=== PATIENT | female | born 1980 | race African-American/Black ===

== ENCOUNTER 2017-02-17 04:36 | Emergency (ER) | payer OTHER ==
[~2017-02-17] VITALS: Ht 162.6 cm; Wt 60.0 kg
[2017-02-17 05:27] VITALS: BP 122/75
[2017-02-17 05:39] LABS: CLARITY URINE CLEAR (CLEAR); COLOR URINE YELLOW (YELLOW); GLUCOSE URINE NEGATIVE (NEGATIVE); KETONES URINE NEGATIVE (NEGATIVE); LEUKOCYTE ESTERASE URINE 3+ (NEGATIVE); NITRITE URINE NEGATIVE (NEGATIVE); OCCULT BLOOD URINE 2+ (NEGATIVE); PH URINE 5.5 (4.5-8.0); PROTEIN URINE NEGATIVE (NEGATIVE); UROBILINOGEN URINE 0.2 E.U./dL (0.2-1.0)
== END 2017-02-17 07:14 | disposition home or self-care (01) ==
LOC: ER 04:36
DX: N39.0 Urinary tract infection, site not specified (principal)
CPT/HCPCS: 81001; 81025; 99283

== ENCOUNTER 2017-07-15 18:03 | Emergency (ER) | payer MEDICAID, OTHER ==
[~2017-07-15] VITALS: Ht 160 cm; Wt 62.0 kg
[2017-07-15] MEDS ORDERED: IBUPROFEN 600MG TABLET PO STA (21:53)
[2017-07-15 22:09] LABS: CLARITY URINE CLOUDY (CLEAR); COLOR URINE YELLOW (YELLOW); GLUCOSE URINE NEGATIVE (NEGATIVE); KETONES URINE TRACE (NEGATIVE); LEUKOCYTE ESTERASE URINE 2+ (NEGATIVE); NITRITE URINE NEGATIVE (NEGATIVE); OCCULT BLOOD URINE NEGATIVE (NEGATIVE); PROTEIN URINE NEGATIVE (NEGATIVE); SPECIFIC GRAVITY URINE 1.025 (1.005-1.030)
[2017-07-15] MEDS ORDERED: CEPHALEXIN 500MG CAPSULE PO ONE (22:45)
[2017-07-15 23:00] VITALS: BP 119/62
== END 2017-07-15 23:01 | disposition home or self-care (01) ==
LOC: ER 18:26
DX: N30.00 Acute cystitis without hematuria (principal)
CPT/HCPCS: 81001; 81025; 99283

== ENCOUNTER 2018-09-19 22:59 | Emergency (ER) | payer MEDICAID, OTHER ==
[~2018-09-19] VITALS: Ht 162.6 cm; Wt 59.3 kg
[2018-09-20 01:25] LABS: CLARITY URINE CLOUDY (CLEAR); COLOR URINE YELLOW (YELLOW); KETONES URINE TRACE (NEGATIVE); LEUKOCYTE ESTERASE URINE TRACE (NEGATIVE); NITRITE URINE NEGATIVE (NEGATIVE); OCCULT BLOOD URINE 2+ (NEGATIVE); PH URINE 5.5 (4.5-8.0); PROTEIN URINE NEGATIVE (NEGATIVE); SPECIFIC GRAVITY URINE 1.033 (1.005-1.030)
[2018-09-20 03:25] VITALS: BP 108/64
== END 2018-09-20 03:30 | disposition home or self-care (01) ==
LOC: ER 22:59
DX: N39.0 Urinary tract infection, site not specified (principal)
CPT/HCPCS: 81025; 99283

== ENCOUNTER 2020-03-16 10:58 | Emergency (ER) | payer MEDICAID ==
[~2020-03-16] VITALS: Ht 162.6 cm; Wt 66.0 kg
[2020-03-16] MEDS ORDERED: LIDOCAINE HCL 1% 20ML VIAL (Pyxis) INJ INFIL ONE (11:45)
[2020-03-16] MEDS ORDERED: CEFTRIAXONE SODIUM 1 G/VIAL IM ONE (11:45)
[2020-03-16 12:10] LABS: CLARITY URINE CLEAR (CLEAR); COLOR URINE YELLOW (YELLOW); KETONES URINE NEGATIVE (NEGATIVE); LEUKOCYTE ESTERASE URINE 2+ (NEGATIVE); NITRITE URINE NEGATIVE (NEGATIVE); OCCULT BLOOD URINE NEGATIVE (NEGATIVE); PH URINE 5.5 (4.5-8.0); PROTEIN URINE NEGATIVE (NEGATIVE); SPECIFIC GRAVITY URINE 1.018 (1.005-1.030); UROBILINOGEN URINE 0.2 E.U./dL (0.2-1.0)
[2020-03-16 12:30] VITALS: BP 110/80
== END 2020-03-16 12:32 | disposition home or self-care (01) ==
LOC: ER 10:58
DX: U07.1 COVID-19 (principal); N39.0 Urinary tract infection, site not specified; R09.81 Nasal congestion; M79.10 Myalgia, unspecified site
CPT/HCPCS: 71045; 81003; 81025; 87086; 96372; 99284; C9803; J0696; J3490; U0003

== ENCOUNTER 2021-01-27 19:35 | Emergency (ER) | payer MEDICAID ==
[~2021-01-27] VITALS: Ht 162.6 cm; Wt 59.0 kg
[2021-01-27 20:40] LABS: CLARITY URINE CLOUDY (CLEAR); COLOR URINE YELLOW (YELLOW); KETONES URINE TRACE (NEGATIVE); LEUKOCYTE ESTERASE URINE 3+ (NEGATIVE); NITRITE URINE NEGATIVE (NEGATIVE); OCCULT BLOOD URINE 2+ (NEGATIVE); PROTEIN URINE 1+ (NEGATIVE); SPECIFIC GRAVITY URINE 1.015 (1.005-1.030)
[2021-01-27 23:18] LABS: BASOPHILS % 0.3 % (0.0-2.0); EOSINOPHILS % 0.6 % (0.0-5.0); HEMATOCRIT. 26.7 % (36.0-48.0); HEMOGLOBIN. 8.4 g/dL (12.0-16.0); LYMPHOCYTES % 23.4 % (20.0-50.0); MEAN CORPUSCULAR HEMOGLOBIN 26.5 pg (28.0-32.0); MEAN CORPUSCULAR VOLUME 84.3 fL (81.0-99.0); MEAN PLATELET VOLUME 7.3 fl (7.4-10.4); MONOCYTES % 5.1 % (2.0-8.0); NEUTROPHILS % 70.6 % (40.0-76.0); PLATELET 320 x1000/uL (130-400); RED BLOOD CELL COUNT 3.16 mill/uL (4.2-5.4); RED CELL DISTRIBUTION WIDTH 17.2 % (11.6-14.6)
[2021-01-27 23:24] LABS: CHLORIDE 109 mEq/L (98-107)
[2021-01-27 23:34] LABS: B-HCG QUANTITATIVE < 1 mIU/mL (<3)
[2021-01-27] MEDS ORDERED: ACET-2708 MT (23:41)
[2021-01-27] MEDS ORDERED: CEPH500C2 MT (23:41)
[2021-01-27] MEDS ORDERED: ACETAMINOPHEN 325MG TABLET PO SCH (23:45)
[2021-01-27] MEDS ORDERED: CEPHALEXIN 250MG CAPSULE PO SCH (23:45)
[2021-01-28 01:02] VITALS: BP 115/80
== END 2021-01-28 01:05 | disposition home or self-care (01) ==
LOC: ER 19:35
DX: D64.9 Anemia, unspecified (principal); D25.9 Leiomyoma of uterus, unspecified; N94.6 Dysmenorrhea, unspecified; Z98.890 Other specified postprocedural states; Z13.9 Encounter for screening, unspecified
CPT/HCPCS: 36415; 76830; 76856; 80053; 81003; 81025; 84702; 85025; 86850; 86870; 86900; 86901; 87591; 99284; Z7610

== ENCOUNTER 2021-07-15 17:21 | Emergency (ER) | payer MEDICAID ==
[~2021-07-15] VITALS: Ht 162.6 cm; Wt 57.0 kg
[~2021-07-15 17:21] MED LIST: ACET-2708 MT; CIPR-263 MT
[2021-07-15 17:29] VITALS: BP 108/61
== END 2021-07-16 01:29 | disposition left against medical advice (07) ==
LOC: ER 17:21
DX: Z53.21 Procedure and treatment not carried out due to patient leaving prior to being seen by health care provider (principal)

== ENCOUNTER 2021-07-18 22:42 | Emergency (ER) | payer MEDICAID ==
[~2021-07-18] VITALS: Ht 162.6 cm; Wt 58.0 kg
[2021-07-18 22:50] VITALS: BP 111/74
== END 2021-07-19 00:01 | disposition left against medical advice (07) ==
LOC: ER 22:42
DX: R10.9 Unspecified abdominal pain (principal); Z53.21 Procedure and treatment not carried out due to patient leaving prior to being seen by health care provider
CPT/HCPCS: 93005

== ENCOUNTER 2022-02-28 09:55 | Emergency (ER) | payer MEDICAID ==
[~2022-02-28] VITALS: Ht 162.6 cm; Wt 59.0 kg
[2022-02-28 10:10] VITALS: BP 110/61
[2022-02-28] MEDS ORDERED: IBUPROFEN 600MG TABLET PO STA (10:19)
[2022-02-28] MEDS ORDERED: ONDANSETRON 4MG ODT PO STA (10:39)
[2022-02-28 10:43] LABS: CLARITY URINE CLEAR (CLEAR); COLOR URINE YELLOW (YELLOW); KETONES URINE NEGATIVE (NEGATIVE); LEUKOCYTE ESTERASE URINE 2+ (NEGATIVE); NITRITE URINE NEGATIVE (NEGATIVE); OCCULT BLOOD URINE NEGATIVE (NEGATIVE); PROTEIN URINE TRACE (NEGATIVE); SPECIFIC GRAVITY URINE 1.014 (1.005-1.030); UROBILINOGEN URINE 0.2 E.U./dL (0.2-1.0)
[2022-02-28] MEDS ORDERED: PYR200 PO (12:16)
[2022-02-28] MEDS ORDERED: CIPR500T5 PO (12:16)
[2022-02-28] MEDS ORDERED: ONDA4TAB50 PO (12:16)
[2022-02-28] MEDS ORDERED: NAPR-681 PO (12:16)
[2022-02-28] MEDS ORDERED: CEFTRIAXONE SODIUM 1 G/VIAL IM ONE (12:30)
[2022-02-28] MEDS ORDERED: LIDOCAINE HCL 1% 20ML VIAL (Pyxis) INJ INFIL ONE (12:30)
== END 2022-02-28 13:37 | disposition home or self-care (01) ==
LOC: ER 09:55
DX: N39.0 Urinary tract infection, site not specified (principal); Z98.51 Tubal ligation status
CPT/HCPCS: 76770; 81003; 81025; 87077; 87086; 87186; 96372; 99284; J0696; J3490; Q0162

== ENCOUNTER 2022-04-24 11:34 | Emergency (ER) | payer MEDICAID ==
[~2022-04-24] VITALS: Ht 162.6 cm; Wt 59.0 kg
[~2022-04-24 11:34] MED LIST changes: +CIPR500T5 PO; +NAPR-681 PO; +ONDA4TAB50 PO; +PYR200 PO
[2022-04-24 11:38] VITALS: BP 113/68
[2022-04-24 14:04] LABS: CLARITY URINE CLEAR (CLEAR); COLOR URINE YELLOW (YELLOW); KETONES URINE NEGATIVE (NEGATIVE); LEUKOCYTE ESTERASE URINE 2+ (NEGATIVE); NITRITE URINE NEGATIVE (NEGATIVE); OCCULT BLOOD URINE NEGATIVE (NEGATIVE); PH URINE 5.5 (4.5-8.0); PROTEIN URINE NEGATIVE (NEGATIVE); SPECIFIC GRAVITY URINE 1.011 (1.005-1.030); UROBILINOGEN URINE 0.2 E.U./dL (0.2-1.0)
[2022-04-24 14:58] LABS: CHLORIDE 107 mEq/L (98-107); HCG SCREEN NEGATIVE
[2022-04-24 15:02] LABS: BASOPHILS % 0.9 % (0.0-2.0); HEMATOCRIT. 31.2 % (36.0-48.0); LYMPHOCYTES % 34.1 % (20.0-50.0); MEAN CORPUSCULAR HEMOGLOBIN 23.8 pg (28.0-32.0); MEAN CORPUSCULAR VOLUME 82.2 fL (81.0-99.0); MEAN PLATELET VOLUME 7.6 fl (7.4-10.4); MONOCYTES % 3.9 % (2.0-8.0); NEUTROPHILS % 60.1 % (40.0-76.0); PLATELET 295 x1000/uL (130-400); RED CELL DISTRIBUTION WIDTH 20.6 % (11.6-14.6)
[2022-04-24] MEDS ORDERED: ONDANSETRON 4MG ODT PO ONE (15:15)
[2022-04-24] MEDS ORDERED: CEFTRIAXONE SODIUM 1 G/VIAL IM ONE (15:30)
[2022-04-24] MEDS ORDERED: KETOROLAC 60MG/2ML VIAL IM ONE (15:30)
[2022-04-24] MEDS ORDERED: LIDOCAINE HCL 1% 20ML VIAL (Pyxis) INJ INFIL ONE (15:45)
[2022-04-24] MEDS ORDERED: LIDOCAINE HCL/PF 1% 10 MG/ML 5ML VIAL INFIL NR (15:45)
[2022-04-24] MEDS ORDERED: CEFP200T13 MT (16:05)
== END 2022-04-24 16:19 | disposition home or self-care (01) ==
LOC: ER 11:48
DX: N39.0 Urinary tract infection, site not specified (principal); B96.89 Other specified bacterial agents as the cause of diseases classified elsewhere
CPT/HCPCS: 36415; 80053; 81003; 81025; 83690; 84703; 85025; 87077; 87086; 87186; 93005; 96372; 99284; J0696; J1885; J3490; Q0162

== ENCOUNTER 2022-07-26 18:16 | Emergency (ER) | payer MEDICAID ==
[~2022-07-26] VITALS: Ht 162.6 cm; Wt 59.0 kg
[~2022-07-26 18:16] MED LIST changes: +CEFP200T13 MT
[2022-07-26 20:49] LABS: BASOPHILS % 0.4 % (0.0-2.0); EOSINOPHILS % 1.4 % (0.0-5.0); HEMOGLOBIN. 10.6 g/dL (12.0-16.0); LYMPHOCYTES % 37.4 % (20.0-50.0); MEAN CORPUSCULAR VOLUME 83.4 fL (81.0-99.0); MEAN PLATELET VOLUME 7.4 fl (7.4-10.4); MONOCYTES % 4.6 % (2.0-8.0); NEUTROPHILS % 56.2 % (40.0-76.0); PLATELET 379 x1000/uL (130-400); RED BLOOD CELL COUNT 4.08 mill/uL (4.2-5.4); RED CELL DISTRIBUTION WIDTH 19.4 % (11.6-14.6)
[2022-07-26 21:05] LABS: CHLORIDE 106 mEq/L (98-107)
[2022-07-26 21:29] LABS: B-HCG QUANTITATIVE 2964 mIU/mL (<3)
[2022-07-27] MEDS ORDERED: ACETAMINOPHEN 325MG TABLET PO STA (00:30)
[2022-07-27 00:32] LABS: CLARITY URINE CLOUDY (CLEAR); COLOR URINE YELLOW (YELLOW); KETONES URINE TRACE (NEGATIVE); LEUKOCYTE ESTERASE URINE TRACE (NEGATIVE); NITRITE URINE NEGATIVE (NEGATIVE); OCCULT BLOOD URINE NEGATIVE (NEGATIVE); PH URINE 5.5 (4.5-8.0); PROTEIN URINE TRACE (NEGATIVE); SPECIFIC GRAVITY URINE 1.031 (1.005-1.030)
[2022-07-27] MEDS ORDERED: ACET-2708 PO (01:32)
[2022-07-27 02:04] VITALS: BP 108/65
== END 2022-07-27 02:05 | disposition home or self-care (01) ==
LOC: ER 18:16
DX: O20.0 Threatened abortion (principal); Z3A.01 Less than 8 weeks gestation of pregnancy
CPT/HCPCS: 36415; 76801; 80053; 81003; 81025; 84702; 85025; 86850; 86870; 86900; 99284

== ENCOUNTER 2022-12-04 12:44 | Emergency (ER) | payer MEDICAID ==
[~2022-12-04] VITALS: Ht 162.6 cm; Wt 59.1 kg
[~2022-12-04 12:44] MED LIST changes: +ACET-2708 PO
[2022-12-04 12:55] VITALS: BP 112/73
[2022-12-04 14:23] LABS: CHLORIDE 107 mEq/L (98-107)
[2022-12-04 14:25] LABS: BASOPHILS % 0.8 % (0.0-2.0); EOSINOPHILS % 0.5 % (0.0-5.0); HEMOGLOBIN. 8.5 g/dL (12.0-16.0); LYMPHOCYTES % 23.8 % (20.0-50.0); MEAN CORPUSCULAR HEMOGLOBIN 25.7 pg (28.0-32.0); MEAN CORPUSCULAR VOLUME 81.9 fL (81.0-99.0); MEAN PLATELET VOLUME 7.7 fl (7.4-10.4); MONOCYTES % 5.1 % (2.0-8.0); NEUTROPHILS % 69.8 % (40.0-76.0); PLATELET 374 x1000/uL (130-400); RED BLOOD CELL COUNT 3.29 mill/uL (4.2-5.4); RED CELL DISTRIBUTION WIDTH 17.8 % (11.6-14.6)
[2022-12-04 14:33] LABS: PROTHROMBIN TIME 10.9 sec (9.6-11.0)
[2022-12-04] MEDS ORDERED: SODIUM CHLORIDE 0.9% 1,000 ML IV ONE (15:00)
[2022-12-04] MEDS ORDERED: MEDR5TAB MT (17:00)
[2022-12-04] MEDS ORDERED: IRON15TA3 MT (17:00)
== END 2022-12-04 19:12 | disposition home or self-care (01) ==
LOC: ER 12:44
DX: D64.9 Anemia, unspecified (principal); D25.9 Leiomyoma of uterus, unspecified; N94.6 Dysmenorrhea, unspecified; Z79.899 Other long term (current) drug therapy
CPT/HCPCS: 36415; 76830; 76856; 80053; 82140; 82962; 83605; 84484; 85025; 85610; 87040; 93005; 96360; 99285; J7030; Z7610

== ENCOUNTER 2024-04-11 00:40 | Emergency (ER) | payer MEDICAID ==
[~2024-04-11] VITALS: Ht 162.6 cm; Wt 67.4 kg
[~2024-04-11 00:40] MED LIST changes: +IRON15TA3 MT; +MEDR5TAB MT
[2024-04-11 00:54] VITALS: BP 120/80; PULSE 93; RESP 16; TEMP 98.3; O2SAT 99
[2024-04-11 01:55] LABS: CLARITY URINE CLEAR (CLEAR); COLOR URINE YELLOW (YELLOW); GLUCOSE URINE NEGATIVE (NEGATIVE); KETONES URINE 1+ (NEGATIVE); LEUKOCYTE ESTERASE URINE NEGATIVE (NEGATIVE); NITRITE URINE NEGATIVE (NEGATIVE); OCCULT BLOOD URINE NEGATIVE (NEGATIVE); PROTEIN URINE NEGATIVE (NEGATIVE); SPECIFIC GRAVITY URINE 1.028 (1.005-1.030)
== END 2024-04-11 02:36 | disposition left against medical advice (07) ==
LOC: ER 00:40
DX: R10.9 Unspecified abdominal pain (principal); Z53.21 Procedure and treatment not carried out due to patient leaving prior to being seen by health care provider
CPT/HCPCS: 81003